=== PATIENT | female | born 1935 | race Caucasian/White ===

== ENCOUNTER → 2021-07-14 | Outpatient (CLI) | payer OTHER, MEDICARE ==
[~2021-07-14] MED LIST: BENAZEPRIL HCL40 MG PO; CENTRUM SILVER1 EAC4 PO; CRESTOR10 MG PO; FERROUS SULFAT325 MG PO; FOLIC ACID1 MG PO; FOSAMAX70 MG PO; GLIMEPIRIDE1 MG PO; LEVOTHYROXINE100 MCG PO; METHOTREXATE T2.5 MG PO; NEURONTIN100 MG PO; NORVASC10 MG PO; STOOL SOFTENER100 M1 PO; TYLENOL EXTRA500 MG PO; ULTRAM50 MG PO
[2021-07-14 11:48] LABS: HEMOGLOBIN 9.5 gm/dl (12.3-15.3); RED BLOOD COUNT 3.03 M/UL (4.00-5.10); WHITE BLOOD COUNT 4.2 K/UL (4.5-11.0)
== END ==
LOC: OPSV2 10:44
PROVIDERS: Orthopaedic Surgery
DX: Z01.818 Encounter for other preprocedural examination (principal); S72.114A Nondisplaced fracture of greater trochanter of right femur, initial encounter for closed fracture
CPT/HCPCS: 36415; 71046; 80048; 81001; 85027; 85610; 85730; 93005